=== PATIENT | male | born 1975 | race Two or more races ===

== ENCOUNTER 2017-12-31 15:24 | Emergency (ER) | payer OTHER ==
--- NOTE | 2017-12-31 15:34 | CPEKG ---
Heart Rate: 116 RR Interval: 517 P-R Interval: 132 QRSD Interval: 76 QT Interval: 332 QTC Interval: 462 P [place]: 67 QRS [place]: 44 T Wave [place]: 17 EKG Severity - OTHERWISE NORMAL ECG - EKG Impression: SINUS TACHYCARDIA Electronically Signed By: Natalia García 01-Jan-2018 10:15:57
[2017-12-31 15:37] VITALS: TEMP 98.1
--- NOTE | 2017-12-31 15:44 | EDPHY ---
HPI/HX/ROS/PE/MDM Narrative: CHIEF COMPLAINT: Rapid heart rate HISTORY OF PRESENT ILLNESS: The patient is a 42 y/o male with a history of anxiety arriving via EMS complaining of a rapid heart rate for 20 minutes, that has continued to be mildly fast. He was notified by his apple watch that his heart rate was between 140-150 for the 20 minutes today while at work. He describes no increased anxiety at the time. No chest pain or SOB during episode. Does report some lightheadedness but no syncope. Took 2 Aspirin prior to EMS arrival. Resting heart rate is normally in the 80's. Reports heart rate did seem irregular earlier. Denies event that caused him anxiety today. Grandfather has history of [place] in his 50's, mother of a stroke. No hypercholesteremia, hypertension, diabetes , PE, DVT. No fever, chills, chest pain, shortness of breath, vomiting, diarrhea, urinary complaints, headache. REVIEW OF SYSTEMS: Aside from elements discussed in the HPI, a comprehensive 10-point review of systems was reviewed and is negative. 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 HEENT: Atraumatic. Eyes: No icterus, no injection. Mouth: moist mucous membranes. No erythema or lesions. Neck: supple with no adenopathy. LUNGS: Clear to auscultation bilaterally, no wheezes, rhonchi or rales. CARDIAC: Tachycardic rate. No rubs, murmurs or gallops. ABDOMEN: Soft, nontender, nondistended, bowel sounds normal. BACK: No CVA tenderness. EXTREMITIES: No trauma. No edema. Range of motion is normal throughout. NEURO: Alert and oriented, grossly nonfocal. SKIN: Warm and dry, no rash. PSYCHIATRIC: Normal mentation, no agitation. Somewhat anxious Portions of this note were transcribed by a biomedical electronics technician. I personally performed a history, physical exam, medical decision making, and confirmed accuracy of information the transcribed note. ED Course: The patient is a 42 y/o male with a history of anxiety arriving via EMS presenting with a rapid heart rate, onset this afternoon. During my exam he is in a sinus tachycardia of 115. Labs, chest x-ray, and EKG ordered. 1L IV NS administered. 1529: 12-LEAD EKG: Please see the full report in [facility]. My interpretation: Sinus tachycardia with a rate of 116 1642: I reviewed patient's chest x-ray; it is normal. Labs largely unremarkable. Troponin negative. Monitor continues to show mild sinus tachycardia. 1720: Patient is still tachycardic and his labs are normal, 1mg IV Ativan administered. 1822: Reassessed patient and discussed imaging and laboratory results. His heart rate is currently around 100. He believes he took Sudafed this morning for congestion. I have advised him to follow up with his PCP and discuss his TSH with his PCP. I have also advised him to follow up with Dr. Catherine, facilities specialist, for consideration of holter monitor. Return precautions provided; patient is comfortable with this plan. MDM: Diff dx considered included but not limited to anxiety, fever, drug or alcohol abuse, drug or alcohol withdrawl, dehydration, anemia, SVT, atrial fibrillation or atrial flutter, ventricular tachycardia. - Data Points Imaging Results: CXR: Impression: Normal. Dictated By: Drake Back MD Imaging: I viewed and interpreted images myself Laboratory Results: Laboratory Results 12/31/17 15:24 12/31/17 15:24 Medications Given: Discontinued Medications Sodium Chloride (Ns) 1,000 mls @ 0 mls/hr IV ONCE ONE; Wide Open PRN Reason: Protocol Stop: 12/31/17 16:02 Last Admin: 12/31/17 16:06 Dose: 1,000 mls Lorazepam (Ativan Injection) 1 mg IVP EDNOW ONE Stop: 12/31/17 17:22 Last Admin: 12/31/17 17:25 Dose: 1 mg Lorazepam (Ativan 1 Mg Prepack#4) 1 btl TAKEHOME EDNOW ONE Stop: 12/31/17 18:28 Last Admin: 12/31/17 18:33 Dose: 1 btl General Time Seen by Provider: 12/31/17 15:42 Initial Vital Signs: Initial Vital Signs Temperature (C) 36.7 C 12/31/17 15:33 Heart Rate 109 H 12/31/17 15:33 Respiratory Rate 18 12/31/17 15:33 Blood Pressure 146/99 H 12/31/17 15:33 O2 Sat (%) 96 12/31/17 15:33 O2 Delivery Mode Room Air Allergies/Adverse Reactions: No Known Allergies Allergy (Unverified 12/31/17 15:31) Home Medications: Medication Instructions Recorded Effexor Xr 37.5MG (*) 12/31/17 Departure - Departure Disposition: Home, Routine, Self-Care Clinical Impression: Sinus tachycardia, Palpitations Condition: Good Instructions: Lorazepam (By mouth), Tachycardia (ED), Heart Palpitations (ED) Additional Instructions: Take Ativan as prescribed if you experience the rapid heart rate before you follow up with your PCP. Only take 1/2 of an Ativan before your [place] presentation. Follow up with your primary care provider in 3 days. Make sure to have your TSH evaluated. Make sure to discuss a halter monitor. Follow up with a facilities specialist in the next week, you have been referred to Dr. Catherine. Please return to the Emergency Department immediately for any recurrent chest pain, difficulty breathing or other concerns. Referrals: Flor Ansari MD [Primary Care Provider] - As per Instructions Vanesa Catherine MD [Medical Doctor] - As per Instructions Report Scribed for: Natalia García Report Scribed by: Aleta Sherman Date of Report: 12/31/17 Time of Report: 15:44
[2017-12-31 15:49] LABS: PLATELET COUNT 242 10^3/uL (150-400)
[2017-12-31] MEDS ORDERED: NS 1,000 ML IV ONE (16:01)
[2017-12-31 16:13] VITALS: RESP 20
[2017-12-31] MEDS ORDERED: LORazepam 2 MG/ML INJ IVP ONE (17:21)
[2017-12-31 18:12] VITALS: BP 151/97; PULSE 99; O2SAT 92
[2017-12-31] MEDS ORDERED: LORAZEPAM 1 MG PREPACK#4 BTL TAKEHOME ONE (18:27)
== END 2017-12-31 18:42 | disposition home or self-care (01) ==
DX: R00.0 Tachycardia, unspecified (principal); R00.2 Palpitations; E86.9 Volume depletion, unspecified; F17.200 Nicotine dependence, unspecified, uncomplicated
CPT/HCPCS: 96374; J2060